=== PATIENT | female | born 1975 | race American Indian/Alaskan Native ===

== ENCOUNTER → 2019-01-11 | Outpatient (CLI) | payer OTHER ==
[~2019-01-11] MED LIST: CHLO25B; VENL75ER PO
[2019-01-15 15:07] LABS: HPV 16 Negative (Negative); HPV 18 Negative (Negative); HPV OTHER HR TYPES Negative (Negative)
== END | disposition home or self-care (01) ==
LOC: LAB SHORT 10:17 → LAB 10:17
PROVIDERS: Obstetrics & Gynecology Gynecology
DX: Z12.4 Encounter for screening for malignant neoplasm of cervix (principal)
CPT/HCPCS: 87624; G0123

== ENCOUNTER 2019-11-15 06:14 | Day surgery (SDC) | payer OTHER ==
[~2019-11-15] VITALS: Ht 154.9 cm; Wt 81.9 kg
[~2019-11-15 06:14] MED LIST changes: +CHLO25B PO; +LOSA50 PO; +METF500 PO; +NAPR550 PO; +VENL25 PO
--- NOTE | 2019-11-15 07:00 | NUR ---
Ambulatory in Day Surgery History, Chart, Medications and Allergies reviewed before start of procedure.Patient confirms NPO status and agrees with scheduled surgery. Patient reports completing Chlorhexadine shower X2 prior to admission to hospital.Surgical site prepped with 2% Chlorhexidine cloth wipe. Lungs clear T/O to Auscultation. Patient States Post-Procedure ride home has been arranged WITH SPOUSE
--- NOTE | 2019-11-15 18:06 | NUR ---
SUMMARY PT AMBULATED IN HALLWAY, STEADY ON FEET, SABINA FULL LIQUID DIET WITHOUT NAUSEA. ABD PAIN WELL CONTROLLED WITH PO MEDS.
--- NOTE | 2019-11-16 04:29 | NUR ---
SHIFT SUMMARY: PT POD#1 FOR LAP EDUIN. LAP SITES C/D/I. PT SABINA FULL LIQ DIET AND DENIES N/V. PAIN BEING MANAGED WITH NORCO PER EMAR. MEDICATED ONCE THIS SHIFT. IVF AND ABX INFUSING PER ORDERS. PT VOIDING WELL. REPORTS PASSING A SMALL AMOUNT OF FLATUS. POSSIBLE DISCHARGE HOME TODAY.
--- NOTE | 2019-11-16 13:25 | NUR ---
OFELIA DRAIN DC'D ORDERED, SCANT SEROUS DRAINAGE NOTED IN BULB, PT TOLERATED PROCEDURE WELL, STERILE 4X4 AND OPSITE PLACED ON DRAIN SITE, DC INSTRUCTIONS GIVEN, VERBALIZED UNDERSTANDING, PT WAITING FOR RIDE HOME.
[2019-11-16] MEDS ORDERED: HYDR1TAB94 PO (13:35)
--- NOTE | 2019-11-16 13:55 | NUR ---
DC'D HOME WITH , DC INSTRUCTIONS GIVEN, VERBALIZED UNDERSTANDING.
== END 2019-11-16 13:55 | disposition home or self-care (01) ==
LOC: ORSCMMR 06:14 → ORD 07:30 → ORSCMMR 07:30 → SURS 11:32 → ORSCMMR 11-16 13:55
PROVIDERS: Surgery
PROC: BF031ZZ Plain Radiography of Gallbladder and Bile Ducts using Low Osmolar Contrast (ICD-10-PCS; principal; 2019-11-15 07:30)
PROC: 0FT44ZZ Resection of Gallbladder, Percutaneous Endoscopic Approach (ICD-10-PCS; principal; 2019-11-15 07:30)
DX: K80.12 Calculus of gallbladder with acute and chronic cholecystitis without obstruction (principal); I10 Essential (primary) hypertension; E11.9 Type 2 diabetes mellitus without complications; F32.9 Major depressive disorder, single episode, unspecified; Z79.899 Other long term (current) drug therapy; Z79.84 Long term (current) use of oral hypoglycemic drugs
CPT/HCPCS: 74300; 82947; 84703; 88304; A9270-GY; C1729; J0694; J1100; J1650; J1885; J2250; J2405; J2704; J3010; J7120

== ENCOUNTER 2020-05-13 09:33 | Day surgery (SDC) | payer OTHER ==
[~2020-05-13] VITALS: Ht 154.9 cm; Wt 85.2 kg
[~2020-05-13 09:33] MED LIST changes: +HYDR1TAB94 PO; +LOSARTAN POTAS100 M1 PO
== END 2020-05-13 12:06 | disposition home or self-care (01) ==
LOC: ORSCSDS 09:33
PROVIDERS: Orthopaedic Surgery
PROC: 01N54ZZ Release Median Nerve, Percutaneous Endoscopic Approach (ICD-10-PCS; principal; 2020-05-13 11:00)
DX: G56.02 Carpal tunnel syndrome, left upper limb (principal); E11.9 Type 2 diabetes mellitus without complications; I10 Essential (primary) hypertension; E66.9 Obesity, unspecified; Z68.34 Body mass index [BMI] 34.0-34.9, adult; Z79.84 Long term (current) use of oral hypoglycemic drugs; Z79.899 Other long term (current) drug therapy
CPT/HCPCS: 82947; J2250; J7120

== ENCOUNTER 2020-06-24 07:32 | Day surgery (SDC) | payer OTHER ==
[~2020-06-24] VITALS: Ht 154.9 cm; Wt 86.5 kg
== END 2020-06-24 10:00 | disposition home or self-care (01) ==
LOC: ORSCSDS 07:32
PROVIDERS: Orthopaedic Surgery
PROC: 01N54ZZ Release Median Nerve, Percutaneous Endoscopic Approach (ICD-10-PCS; principal; 2020-06-24 09:00)
DX: G56.01 Carpal tunnel syndrome, right upper limb (principal); E11.9 Type 2 diabetes mellitus without complications; I10 Essential (primary) hypertension; F32.9 Major depressive disorder, single episode, unspecified; E66.01 Morbid (severe) obesity due to excess calories; Z68.36 Body mass index [BMI] 36.0-36.9, adult; Z79.84 Long term (current) use of oral hypoglycemic drugs; Z79.899 Other long term (current) drug therapy
CPT/HCPCS: 82947; J2250

== ENCOUNTER 2021-07-17 18:23 | Emergency (ER) | payer OTHER ==
[2021-07-17] MEDS ORDERED: OXYC5 PO (20:26)
[2021-07-17] MEDS ORDERED: ONDA4 PO (20:52)
== END 2021-07-17 20:57 | disposition home or self-care (01) ==
LOC: ER 18:23
DX: S30.1XXA Contusion of abdominal wall, initial encounter (principal); S80.02XA Contusion of left knee, initial encounter; S50.812A Abrasion of left forearm, initial encounter; S46.911A Strain of unspecified muscle, fascia and tendon at shoulder and upper arm level, right arm, initial encounter; V89.2XXA Person injured in unspecified motor-vehicle accident, traffic, initial encounter; Y92.410 Unspecified street and highway as the place of occurrence of the external cause
CPT/HCPCS: 73706; 74177; A9270; J1170; J2405; Q9967